=== PATIENT | female | born 1945 | race Caucasian/White ===

== ENCOUNTER 2018-04-23 08:50 | Observation (INO) ==
[2018-04-23] MEDS ORDERED: SODIUM CHLORIDE 0.9% 1,000 ML IV STA (09:06)
[2018-04-23 09:50] LABS: Basophils % 0.5 % (0.0-0.8); Eosinophils % 0.2 % (0.00-10.9); Hematocrit 38.4 VOL% (35.7-47.0); Hemoglobin 12.8 GM/DL (12.0-16.0); Immature Granulocytes % 0.3 %; Immature Granulocytes Absolute 0.03 #; Lymphocytes # 1.1 10*3/uL (1.4-4.0); Mean Corpuscular HGB Conc 33.3 GM/DL (32-36); Mean Corpuscular Hemoglobin 30 PG (27-34); Mean Corpuscular Volume 89.1 FL (87-102); Mean Platelet Volume 8.6 FL (9.6-12.0); Monocytes # 0.7 10*3/uL (0.11-0.8); Monocytes % 8.4 % (1.7-12.7); Neutrophils # 6.7 10*3/uL (1.4-7.4); Neutrophils % 77.6 % (38.7-73.9); Platelet Count 359 T/CUMM (130-400); Red Blood Count 4.31 MC/CUMM (3.8-5.5); Red Cell Distribution Width 12.1 % (9.3-17.3); White Blood Count 8.7 T/CUMM (4-12)
[2018-04-23 09:57] LABS: INR 0.9; PT Patient Result 10.2 SECS
[2018-04-23 10:25] LABS: Albumin 3.9 G/DL (3.4-5.0); Bilirubin,Total 0.5 MG/DL (0.2-1.0); Potassium 3.6 MMOL/L (3.5-5.1); Total Protein 7.8 G/DL (6.4-8.3)
[2018-04-23 10:35] LABS: Apearance,Urine CLEAR (Clear); Bacteria,Urine Occasional /HPF (Few); Bilirubin,Urine Negative (Negative); Blood, Urine Small mg/dL (Negative); Glucose,Urine (UA) Negative (Negative); Ketones,Urine Negative (Negative); Nitrite,Urine Negative (Negative); Protein,Urine Negative; RBC,Urine <1 /HPF (0-4); Squamous Epithelial Cell,Urine Occasional /HPF (0-10); Urine Color Straw (Yellow); Urine Specific Gravity 1.003 (1.001-1.035); Urine Urobilinogen < 2.0 EU/DL (0.2-1.0); WBC,Urine 4 /HPF (0-6)
[2018-04-23 10:41] LABS: Barbiturates Screen,Urine Negative (Negative); Benzodiazepines Screen,Urine Negative (Negative); Cannabinoid Screen,Urine Negative (Negative); Opiate Screen,Urine Negative (Negative); Phencyclidine Screen,Urine Negative (Negative)
[2018-04-23] MEDS ORDERED: ONDANSETRON 4 MG/2 ML VIAL IV PRN (13:06)
[2018-04-23] MEDS ORDERED: ACETAMINOPHEN 325 MG TABLET PO PRN (13:06)
[2018-04-23] MEDS: SODIUM CHLORIDE 0.9% 1,000 ML IV SCH ×2 (13:10→21:34)
[2018-04-23] MEDS ORDERED: FAMOTIDINE 20 MG TABLET PO PRN (13:37)
[2018-04-23 14:48] LABS: Troponin I < 0.015 NG/ML (0.00-0.045)
[2018-04-23 16:47] LABS: Troponin I < 0.015 NG/ML (0.00-0.045)
[2018-04-23 20:20] LABS: Troponin I < 0.015 NG/ML (0.00-0.045)
[2018-04-23] MEDS: DOCUSATE SODIUM 100 MG CAPSULE PO SCH (21:32)
[2018-04-23 22:52] LABS: Troponin I < 0.015 NG/ML (0.00-0.045)
[2018-04-24] MEDS: SODIUM CHLORIDE 0.9% 1,000 ML IV SCH (05:40)
[2018-04-24 05:42] LABS: Calcium 8.2 MG/DL (8.5-10.1); Osmolality,Calculated 278.3 MOS/KG (273-304); Potassium 3.2 MMOL/L (3.5-5.1); Risk Ratio 4.76; VLDL CHOLESTEROL 19.8 MG/DL
[2018-04-24] MEDS ORDERED: MULTIVITAMIN (CENTRUM) TABLET PO SCH (09:00)
[2018-04-24] MEDS ORDERED: OLMESARTAN 20 MG TABLET PO SCH (09:00)
[2018-04-24] MEDS ORDERED: ASPIRIN EC 81 MG TABLET PO SCH (09:00)
[2018-04-24] MEDS ORDERED: hydroCHLOROthiazide 12.5 MG CAPSULE PO SCH (09:00)
[2018-04-24] MEDS ORDERED: PANTOPRAZOLE 40 MG TABLET PO SCH (09:00)
[2018-04-24] MEDS: POTASSIUM CHLORIDE 20 MEQ TABLET PO PRN ×3 (09:47→13:48)
[2018-04-24] MEDS: DOCUSATE SODIUM 100 MG CAPSULE PO SCH (09:47)
[2018-04-24] MEDS ORDERED: NITROFURANTOIN MACRO/MONO 100 MG CAPSULE PO SCH (11:30)
[2018-04-24 12:14] VITALS: BP 120/58
== END 2018-04-24 15:12 | disposition home or self-care (01) ==
LOC: N.EDINP 08:50 → N.ED 08:50 → N.2W 10:53 → N.TELES 10:54 → N.2W 12:09 → N.TELES 13:07
PROVIDERS: ADMIT Family Medicine; ATTEND Family Medicine